=== PATIENT | male | born 1980 | race Caucasian/White ===

== ENCOUNTER → 2022-02-04 11:57 | Outpatient (CLI) | payer BC, SELFPAY ==
--- NOTE | ~2022-02-04 | XR_ITS ---
EXAMINATION: XR chest 2V DATE: 02/04/2022 12:21 INDICATION: Cough, unspecified. Chest pain. Shortness of breath. TECHNIQUE: Frontal and lateral views of the chest were obtained. COMPARISON: None. FINDINGS: The chest demonstrates clear lungs without pneumonia, pleural effusion, or pneumothorax. Th e heart size is normal. IMPRESSION: 1. No acute cardiopulmonary disease. Reviewed, dictated and finalized at location B.
== END ==
PROVIDERS: PCP Clinical Nurse Specialist; Visit Provider Clinical Nurse Specialist
DX: R05.9 Cough, unspecified (principal); R07.9 Chest pain, unspecified; R06.02 Shortness of breath
CPT/HCPCS: 71046

== ENCOUNTER 2022-03-10 11:03 | Outpatient (CLI) | payer BC, SELFPAY ==
[2022-03-10 11:34] LABS: Appearance Urine Clear (Clear); Bilirubin Urine Negative (Negative); Blood Urine Negative (Negative); Color Urine Yellow (Yellow); Glucose Urine UA Negative (Negative); Ketones Urine Negative (Negative); Leukocyte Esterase Ur Negative LEU/UL (Negative); Nitrate Urine Negative (Negative); Protein Urine Negative (Negative); Specific Grav Ur 1.025 (1.001-1.035); Urobilinogen Urine 0.2 mg/dL (<2.0)
[2022-03-10 11:42] LABS: Amorphous Sediment Urine Few; WBC Urine 0-3 /hpf
[2022-03-10 11:44] LABS: Add Urine Microscopic? YES
== END 2022-03-10 11:04 | disposition home or self-care (01) ==
PROVIDERS: PCP Clinical Nurse Specialist; Visit Provider Nurse Practitioner
DX: R10.30 Lower abdominal pain, unspecified (principal)
CPT/HCPCS: 81001

== ENCOUNTER 2022-03-10 17:03 | Emergency (ER) | payer BC, SELFPAY ==
--- NOTE | ~2022-03-10 | CT_ITS ---
EXAMINATION: CT abdomen pelvis w con DATE: 03/10/2022 17:57 INDICATION: Abdominal pain-lower abdominal and right groin pain, worse with urination and defecation TECHNIQUE: Computed tomography (CT) of the abdomen and pelvis was performed with 75 Omnipaque 300 int ravenous contrast. Automated exposure control and iterative reconstruction technique were employed. T he dose-length product was 256.08 mGy-cm. COMPARISON: None FINDINGS: Lower thorax: Unremarkable Liver: Normal. Biliary/Gallbladder: Gallbladder is partially collapsed. No bile duct dilation. Pancreas: No mass or duct dilation. Spleen: Normal. Adrenals:No mass. Kidneys: Nonobstructive right midpole calculi. No mass or hydronephrosis. GI tract: No small or large bowel dilation. Normal appendix. Mesentery/Peritoneum: No ascites, mass, or free air. Retroperitoneum: No mass. Pelvis: Mild prostate enlargement, with low-density change in the superior aspect. Bilateral enlarged , somewhat low density seminal vesicles, more pronounced on the right. Soft Tissues: Soft tissues and body wall unremarkable. Bones: No acute osseous finding. IMPRESSION: CT findings may reflect prostatitis and seminal vesiculitis in the appropriate clinical context. Othe rwise no acute abdominopelvic process. Reviewed, dictated and finalized at location K. IMPRESSION: CT findings may reflect prostatitis and seminal vesiculitis in the appropriate clinical context. Otherwise no acute abdominopelvic process.
[2022-03-10 17:04] VITALS: BP 131/89; PULSE 70; RESP 16; TEMP 35.9; O2SAT 100
--- NOTE | 2022-03-10 17:20 | ED.ABDPAIN ---
HPI - Abdominal Pain General Chief Complaint: Abdominal Pain Stated Complaint: hernia towards groin Time Seen by Provider: 03/10/22 17:20 Source: patient History of Present Illness HPI narrative: 41 years old white male complaining of intermittent right groin pain radiating to the right upper thigh and testicle for the last 3 weeks. The symptoms started 1 day after working on the deck with heavy lifting. He denies any fever, chills, nausea, vomiting, urinary symptoms, diarrhea or constipation. Patient was seen by his family physician who ordered some imaging for next week. Patient was driving going to [employer] today for work then got another spell of pain, Patient is healthy otherwise. Related Data Allergies Allergy/AdvReac Type Severity Reaction Status Date / Time poison estephania extract Allergy Mild SKIN Verified 06/28/19 14:04 ERUPTIONS/RASH Review of Systems Review of Systems: All systems reviewed & are unremarkable except as noted in HPI and below PMFSH Past Medical History Medical History Environmental allergies Surgical History Surgical History History of vasectomy Family History Family History Father Family history of elevated blood lipids Other Cerebrovascular accident Social History Social History Smoking status: Never smoker Alcohol intake: current Alcohol use details: rarely Exam Narrative: General appearance: Well-developed, well-nourished Skin: Normal color Head: Normocephalic, nontraumatic Eyes: Clear conjunctiva ENT: Oropharynx normal, ears normal, nose normal Neck: Supple, nontender Chest and respiratory: Airway patent, no respiratory distress, no accessory muscle use Heart: Regular rate/rhythm Abdomen: Soft, nontender, no organomegaly, quiet bowel sounds, right groin area showed no tenderness, no rash, no swelling, no mass, no hernia, no lymphadenopathy. Genital exam showed no abnormality. Including the penis and the scrotum and testicles Vascular: Normal peripheral pulses, normal capillary refill. Musculoskeletal: Normal range of motion, nontender back Neurologic: Alert and oriented ?3, CARTOGRAPHIC AIDE is normal as tested, no gross motor deficit Course Course Emergency Course: Work-up did not show any findings to explain patient condition. Right groin area extremely less likely to have anything to do with the possible prostatitis. My plan to send patient on Cipro 500 twice daily for 10 days and to follow-up with urologist for the possible prostatitis which could be coincidental finding. Abdominal wall muscular strain is my concern. Vital Signs Vital signs: Vital Signs Temperature 35.9 C L 03/10/22 17:04 Pulse Rate 70 03/10/22 17:04 Respiratory Rate 16 03/10/22 17:04 Blood Pressure 131/89 03/10/22 17:04 Pulse Oximetry 100 03/10/22 17:04 Oxygen Delivery Room Air 03/10/22 17:04 Temperature 35.9 C L 03/10/22 17:04 Pulse Rate 70 03/10/22 17:04 Respiratory Rate 16 03/10/22 17:04 Blood Pressure 131/89 03/10/22 17:04 Pulse Oximetry 100 03/10/22 17:04 Oxygen Delivery Room Air 03/10/22 17:04 MDM - Abdominal Pain Differential Diagnosis Differential diagnosis: Likely abdominal pain, acute appendicitis, calculus of kidney, constipation and diverticulitis Lab Data Result diagrams: 03/10/22 17:24 03/10/22 17:24 Labs: Lab Results 03/10/22 03/10/22 Range/Units 17:24 17:24 WBC 8.9 (4.5-10.0) K/mm3 RBC 4.65 (4.6-6.20) M/mm3
[2022-03-10 17:29] LABS: Basophils Absolute Auto 0.1 K/mm3 (0.0-0.1); Basophils Percent Auto 0.7 % (0.2-1.2); Eosinophils Absolute Auto 0.2 K/mm3 (0-0.3); Eosinophils Percent Auto 2.4 % (0-4.4); Hematocrit 41.8 % (42.0-52.0); Hemoglobin 14.3 g/dL (14.0-18.0); Immature Granulocyte Absolute 0.03 K/mm3 (0.00-0.031); Immature Granulocyte Percent A 0.3 % (0-0.5); Lymphocytes Absolute Auto 1.45 K/mm3 (0.9-3.2); Lymphocytes Percent Auto 16.4 % (18.3-44.2); Mean Corpuscular HGB Conc 34.2 g/dl (32-36); Mean Corpuscular Hemoglobin 30.8 pg (26-34); Mean Corpuscular Volume 89.9 fl (80-100); Mean Platelet Volume 11.6 fl (7.4-10.4); Monocytes Absolute Auto 0.5 K/mm3 (0.1-0.6); Monocytes Percent Auto 6.1 % (2.6-8.5); Neutrophils Absolute Auto 6.6 K/mm3 (1.3-6.7); Neutrophils Percent Auto 74.1 % (45.5-73.1); Platelet Count Result 157 k/mm3 (150-375); Red Blood Count 4.65 M/mm3 (4.6-6.20); White Blood Count 8.9 K/mm3 (4.5-10.0)
[2022-03-10] MEDS: SODIUM CHLORIDE 0.9% IV 1,000 ML 999 ML IV CONT (17:35)
[2022-03-10 17:37] LABS: Alanine Aminotransferase 31 U/L (6-50); Alkaline Phosphatase 84 U/L (38-126); Anion Gap 6 mmol/L (8-16); Aspartate Amino Transferase 36 U/L (17-59); Bilirubin,Total 0.5 mg/dL (0.2-1.3); Blood Urea Nitrogen 22 mg/dL (9-20); Calcium 8.8 mg/dL (8.4-10.2); Carbon Dioxide 28 mmol/L (22-30); Chloride 105 mmol/L (98-107); Estimated CRCL calculation 73 ml/min; Estimated Glomerular Filt Rate > 60; Glucose 105 mg/dL (65-110); Lipase 182 U/L (23-300); Potassium 4.3 mmol/L (3.4-5.0); Sodium 139 mmol/L (137-145)
== END 2022-03-10 18:42 | disposition home or self-care (01) ==
PROVIDERS: Emergency Provider Emergency Medicine; PCP Internal Medicine
DX: N41.0 Acute prostatitis (principal)
CPT/HCPCS: 36415; 74177; 80053; 83690; 85025; 96360; 99284; J7030; Q9967

== ENCOUNTER 2023-01-14 08:00 | Outpatient (NON) | payer BC, SELFPAY | END 2023-01-14 08:01 | disposition home or self-care (01) | LOC: ANHLAB 01-15 10:33 | PROVIDERS: PCP Internal Medicine; Visit Provider Nurse Practitioner | DX: D22.4 Melanocytic nevi of scalp and neck (principal) | CPT/HCPCS: 88305 ==

== ENCOUNTER 2023-01-21 14:48 | Outpatient (NON) | payer BC, SELFPAY | END 2023-01-21 14:49 | disposition home or self-care (01) | LOC: ANHLAB 14:49 | PROVIDERS: PCP Internal Medicine; Visit Provider Nurse Practitioner | DX: R22.9 Localized swelling, mass and lump, unspecified (principal) | CPT/HCPCS: 88304 ==

== ENCOUNTER → 2023-04-08 11:38 | Outpatient (CLI) | payer BC, SELFPAY ==
--- NOTE | ~2023-04-08 | US_ITS ---
US soft tissue groin RT 04/08/2023 12:08 Indication: Right lower quadrant pain. Evaluate for inguinal hernia. Procedure: High-resolution Limited ultrasound of the right groin Comparison: No prior studies for comparison. Findings: No evidence for right inguinal hernia. There are multiple lymph nodes of the right groin, l argest retaining normal fatty hilum measuring 2.3 cm, likely reactive. Impression: 1: No right inguinal hernia identified. 2: Right inguinal lymphadenopathy, likely reactive. Reviewed, dictated and finalized at location [] Impression: 1: No right inguinal hernia identified. 2: Right inguinal lymphadenopathy, likely reactive.
--- NOTE | ~2023-04-08 | US_ITS ---
Testicular ultrasound with doppler. Indication: Testicular pain. Technique: Real-time sonography the scrotum was performed. Color flow Doppler and Doppler spectral an alysis were performed. Findings: The testes are homogeneous in echotexture bilaterally. There is no evidence of an intrates ticular mass. The right testis measures 4.2 x 1.7 x 3.2 cm and the left 4.1 x 1.8 x 3.2 cm. There is color-flow seen to both testes. Arterial and venous spectral waveforms are seen in both testes. There is no sonographic evidence of torsion. The head of the epididymis is visualized bilaterally and is within normal limits. Minimal left hydrocele present. Impression: Minimal left hydrocele, otherwise unremarkable exam. Reviewed, dictated and finalized at location . Impression: Minimal left hydrocele, otherwise unremarkable exam.
== END ==
PROVIDERS: PCP Internal Medicine; Visit Provider Nurse Practitioner
DX: N50.819 Testicular pain, unspecified (principal); R10.31 Right lower quadrant pain
CPT/HCPCS: 76870; 76882; 93976

== ENCOUNTER 2023-08-09 12:29 | Outpatient (CLI) | payer BC, SELFPAY ==
[2023-08-09 19:05] LABS: Basophils Percent Auto 0.5 % (0.2-1.2); Eosinophils Absolute Auto 0.1 K/mm3 (0-0.3); Hematocrit 44.2 % (42.0-52.0); Hemoglobin 14.6 g/dL (14.0-18.0); Immature Granulocyte Absolute 0.01 K/mm3 (0.00-0.031); Immature Granulocyte Percent A 0.1 % (0-0.5); Lymphocytes Absolute Auto 1.47 K/mm3 (0.9-3.2); Lymphocytes Percent Auto 19.2 % (18.3-44.2); Mean Corpuscular Hemoglobin 29.9 pg (26-34); Mean Corpuscular Volume 90.6 fl (80-100); Mean Platelet Volume 12.4 fl (7.4-10.4); Monocytes Absolute Auto 0.5 K/mm3 (0.1-0.6); Monocytes Percent Auto 6.9 % (2.6-8.5); Neutrophils Absolute Auto 5.5 K/mm3 (1.3-6.7); Neutrophils Percent Auto 72.3 % (45.5-73.1); Platelet Count Result 160 k/mm3 (150-375); Red Blood Count 4.88 M/mm3 (4.6-6.20); Red Cell Distribution Width 11.9 % (11.5-14.5); White Blood Count 7.7 K/mm3 (4.5-10.0)
[2023-08-09 19:31] LABS: Appearance Urine Clear (Clear); Bilirubin Urine Negative (Negative); Blood Urine Negative (Negative); Color Urine Yellow (Yellow); Glucose Urine UA Negative (Negative); Ketones Urine Negative (Negative); Leukocyte Esterase Ur Negative LEU/UL (Negative); Nitrate Urine Negative (Negative); Protein Urine Negative (Negative); Specific Grav Ur 1.008 (1.001-1.035); Urobilinogen Urine 0.2 mg/dL (<2.0); pH Urine 7.5 (5.0-9.0)
[2023-08-09 19:44] LABS: Add Urine Microscopic? NO
[2023-08-09 20:06] LABS: Alanine Aminotransferase 26 U/L (6-50); Albumin Level 4.3 g/dL (3.5-5.1); Alkaline Phosphatase 82 U/L (38-126); Amylase 98 U/L (30-110); Anion Gap 6 mmol/L (8-16); Aspartate Amino Transferase 35 U/L (17-59); Bilirubin,Total 0.5 mg/dL (0.2-1.3); Blood Urea Nitrogen 18 mg/dL (9-20); Calcium 8.9 mg/dL (8.4-10.2); Carbon Dioxide 29 mmol/L (22-30); Chloride 103 mmol/L (98-107); Estimated Glomerular Filt Rate > 60; Glucose 96 mg/dL (65-110); Lipase 208 U/L (23-300); Potassium 3.8 mmol/L (3.4-5.0); Sodium 138 mmol/L (137-145)
[2023-08-09 20:30] LABS: Thyroid Stimulating Hormone 0.779 uIU/mL (0.465-4.680)
== END 2023-08-09 12:30 | disposition home or self-care (01) ==
PROVIDERS: PCP Internal Medicine; Visit Provider Clinical Nurse Specialist
DX: R10.9 Unspecified abdominal pain (principal)
CPT/HCPCS: 36415; 80053; 81003; 82150; 83690; 84443; 85025

== ENCOUNTER 2023-09-14 03:05 | Day surgery (SDC) | payer BC, SELFPAY ==
[2023-08-26 13:15] VITALS: BMI 24.2
--- NOTE | 2023-09-13 09:50 | SUR.PREOP ---
Patient called regarding upcoming procedure. Message left on patient's voicemail regarding preop instructions, appointment times, and procedure prep.
[2023-09-14 07:19] VITALS: BP 107/82; PULSE 84; RESP 16; TEMP 36.3; O2SAT 100; BMI 22.8
[2023-09-14] MEDS: LACTATED RINGERS 1,000 ML 150 ML IV CONT (07:38)
--- NOTE | 2023-09-14 08:03 | WPDANESEPPF ---
Anes - Initial Pre Proc Eval Procedure: Operation Date: 09/14/23 08:30 Proposed Procedures p Esophagogastroduodenoscopy & Screening Colonoscopy - Alok Mitchell MD Date/Time: 09/14/23 08:03 Surgeon: Alok Mitchell MD Pre Op Diagnosis: neoplasm screening,abdom pain,GERD,Adom.distension Patient Data Age: 43 Gender: M Height: 1.65 m Weight: 62.2 kg Last Vital Signs Temp 97.4 F L 09/14/23 07:19 Pulse 84 09/14/23 07:19 Resp 16 09/14/23 07:19 BP 107/82 09/14/23 07:19 Pulse Ox 100 09/14/23 07:19 O2 Del Method Room Air 09/14/23 07:19 Allergies Allergy/AdvReac Type Severity Reaction Status Date / Time poison estephania extract Allergy Mild SKIN Verified 09/14/23 07:18 ERUPTIONS/RASH Home Medications Medication Instructions Recorded Confirmed Type No Home Medications 11/19/22 09/14/23 History Patient hx anesthesia problems: none Family hx anesthesia problems: none Results Review: All pre-operative results and documents have been reviewed as part of the pre-operative evaluation. [facility] Past Medical History Medical History (Updated 08/18/23 @ 10:47 by JEAN Robins) Anxiety BMI 23.0-23.9, adult Environmental allergies GERD (gastroesophageal reflux disease) Surgical History Surgical History History of vasectomy Family History Family History Father Family history of elevated blood lipids Mother No problems noted. Sibling No problems noted. Other Cerebrovascular accident Social History Social History (Updated 08/18/23 @ 10:48 by JEAN Robins) Smoking status: Never smoker Second hand tobacco smoke exposure: No Alcohol intake: current Alcohol use details: 1 drink per month Substance use: current Substance use type: marijuana Other substance usage details: rare occasional edible gummies Last use: gummies Lack of Transportation: No Lack of Food: Never True Current Housing: I Have Housing Concerned About Future Housing: No Difficulty Paying Gas/Electric Bills: No Difficulty Paying for Meds: No Currently Unemployed: No Education: Bachelor's Degree Difficulty w/ Childcare or Family Care: No Living arrangements: with family Occupation/Education: occupation 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 Informed Consent: The patient's anesthetic plan and its attendant risks and benefits were discussed with the patient/family/POA. Questions were solicited and answers provided to the satisfaction of the patient/family/POA.
--- NOTE | 2023-09-14 08:31 | WPDHPUPDATE1 ---
History and Physical Update Update Date/Time: 09/14/23 08:31 History and Physical has been reviewed, including an updated exam of the patient. There are NO changes in the patient's condition. Risks, benefits, and alternatives have been discussed and questions answered. Patient agrees to proceed with procedure.
[2023-09-14] MEDS: BENZOCAINE (*SP) 60 ML SPRAY CAN (HURRICAINE) 1 SPRAY MUCOUS MEM (08:39)
--- NOTE | 2023-09-14 08:45 | SUR.OPER ---
EGD START: 836; END: 983. COLONOSCOPY START: 845; END: 853.
[2023-09-14 08:57] VITALS: BP 99/65; PULSE 73; RESP 15; O2SAT 97
[2023-09-14 09:07] VITALS: BP 123/76; PULSE 71; RESP 21; O2SAT 100
[2023-09-14 09:17] VITALS: BP 117/76; PULSE 68; RESP 15; O2SAT 100
== END 2023-09-14 09:26 | disposition home or self-care (01) ==
PROVIDERS: PCP Internal Medicine; Visit Provider Internal Medicine Gastroenterology
PROC: 0DJ08ZZ Inspection of Upper Intestinal Tract, Via Natural or Artificial Opening Endoscopic (ICD-10-PCS; CPT 43235; principal; 2023-09-14 08:30)
DX: Z12.11 Encounter for screening for malignant neoplasm of colon (principal); D12.5 Benign neoplasm of sigmoid colon; K30 Functional dyspepsia; R14.3 Flatulence
CPT/HCPCS: 43239; 45385; 88305; J2704; J7120

== ENCOUNTER 2024-01-06 14:51 | Outpatient (CLI) | payer BC, SELFPAY ==
--- NOTE | ~2024-01-06 | US_ITS ---
Testicular ultrasound with doppler, and bilateral groin ultrasound. Indication: Pain. Technique: Real-time sonography the scrotum was performed. Color flow Doppler and Doppler spectral an alysis were performed. Findings: The testes are homogeneous in echotexture bilaterally. There is no evidence of an intrates ticular mass. The right testis measures 3.5 x 2.5 x 2.0 cm and the left 3.7 x 2.1 x 2.1 cm. There is color-flow seen to both testes. Arterial and venous spectral waveforms are seen in both testes. There is no sonographic evidence of torsion. The head of the epididymis is visualized bilaterally and is within normal limits. Morphologically normal lymph nodes with prominent fatty mich and thin peripheral cortices are present in the bilateral groin/inguinal regions. No pathologic lymphadenopathy or mass evident. Impression: Unremarkable exam. No evidence of torsion or testicular mass. Morphologically normal lymph nodes in the bilateral groin/renal regions. Reviewed, dictated and finalized at [facility]. Impression: Unremarkable exam. No evidence of torsion or testicular mass. Morphologically normal lymph nodes in the bilateral groin/renal regions. Impression: Unremarkable exam. No evidence of torsion or testicular mass. Morphologically normal lymph nodes in the bilateral groin/renal regions. Impression: Unremarkable exam. No evidence of torsion or testicular mass. Morphologically normal lymph nodes in the bilateral groin/renal regions.
== END 2024-01-06 14:52 ==
LOC: GOSHIMG 14:52
PROVIDERS: PCP Internal Medicine; Visit Provider Clinical Nurse Specialist
DX: R10.32 Left lower quadrant pain (principal); R10.31 Right lower quadrant pain; N50.819 Testicular pain, unspecified
CPT/HCPCS: 76870; 76882; 93976

== ENCOUNTER 2024-06-16 12:15 | Outpatient (CLI) | payer BC, SELFPAY | END 2024-06-16 12:16 | LOC: GOSHIMG 12:16 | PROVIDERS: PCP Internal Medicine; Visit Provider Nurse Practitioner | DX: M25.562 Pain in left knee (principal) | CPT/HCPCS: 73564 ==

== ENCOUNTER 2025-06-05 15:07 | Emergency (ER) | payer BC, SELFPAY ==
--- NOTE | ~2025-06-05 | XR_ITS ---
CHEST RADIOGRAPH, PA AND LATERAL CLINICAL HISTORY: chest pain . COMPARISON: 02/04/2022 TECHNIQUE: PA and lateral views of the chest. FINDINGS The cardiomediastinal silhouette is unremarkable. The lungs are clear. IMPRESSION: No focal infiltrate or effusion. Reviewed, dictated and finalized at location A.
--- NOTE | 2025-06-05 15:08 | ECG_ITS ---
Test Date: 2025-06-05 15:15:54 Measurements Intervals [place] Rate: 89 P: 53 ID: [id number] QRS: 38 QRSD: 94 T: 39 QT: 337 QTc: 411 Interpretive Statements SINUS RHYTHM POSSIBLE LEFT ATRIAL ENLARGEMENT DELAYED PRECORDIAL R/S TRANSITION BASELINE ARTIFACT- I, II, III, AVR, AVL BORDERLINE ECG No previous ECG available for comparison Electronically Signed On 06-05-2025 16:58:05 CDT by Krishna Deleon D.O.
[2025-06-05 15:15] VITALS: BP 135/80; PULSE 90; RESP 16; TEMP 37.1; O2SAT 100
[2025-06-05 15:18] VITALS: PULSE 90; O2SAT 100
--- NOTE | 2025-06-05 15:30 | ED_ITS ---
HPI - Chest Pain General Chief Complaint: Chest Pain Stated Complaint: chest pain x 30 mins, fatigued all day Time Seen by Provider: 06/05/25 15:18 History of Present Illness HPI narrative: This is a 44-year-old male no significant past medical history presents to ED for chest pain. Patient states he was sitting at home on his computer at work when he had onset chest. States that it feels that he can not get a deep breath cassette feels like his weight is catching. Denies fevers, chills, nausea, vomiting, diarrhea, constipation, runny nose, stuffy nose. No cardiac history. He is a nonsmoker. No family history of sudden cardiac . Related Data Allergies Allergy/AdvReac Type Severity Reaction Status Date / Time poison estephania extract Allergy Mild SKIN Verified 06/05/25 15:27 ERUPTIONS/RASH Review of Systems 2 Review of Systems: Gen.: Denies fevers or chills Eyes: Denies eye pain or visual change ENT: Denies congestion Respiratory: Denies shortness of breath or cough CV: Denies chest pain or palpitations GI: Denies abdominal pain nausea, emesis or diarrhea denies burning, urgency, frequency or hematuria Musculoskeletal: Denies back pain or muscle pain Neuro: Denies numbness, tingling, weakness or focal weakness Skin: Denies rash Except as documented, all other systems reviewed and negative [facility] Past Medical History Medical History Anxiety BMI 23.0-23.9, adult Environmental allergies GERD (gastroesophageal reflux disease) Surgical History Surgical History History of vasectomy Family History Family History Father Family history of elevated blood lipids Mother No problems noted. Sibling No problems noted. Other Cerebrovascular accident Social History Social History Smoking status: Never smoker Second hand tobacco smoke exposure: No Alcohol intake: current Alcohol use details: 1 drink per month Substance use: current Substance use type: marijuana Other substance usage details: rare occasional edible gummies Last use: gummies Lack of Transportation: No Lack of Food: Never True Current Housing: I Have Housing Concerned About Future Housing: No Difficulty Paying Gas/Electric Bills: No Difficulty Paying for Meds: No Currently Unemployed: No Education: Bachelor's Degree Difficulty w/ Childcare or Family Care: No Living arrangements: with family Occupation/Education: occupation 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 CARDIOVASCULAR: Regular rate and rhythm without murmurs rubs or gallops. ABDOMINAL: Soft, nontender, nondistended, no rebound or guarding MUSCULOSKELETAl: Moves all extremities. No clubbing, cyanosis or edema. NEURO: Awake and alert. Following commands, speech normal, no focal deficits SKIN:: Warm, dry. No rashes lesions or abrasions PSYCHIATRIC: Normal affect/mood, Course Vital Signs Vital signs: Vital Signs Temperature 98.7 F 06/05/25 15:15 Pulse Rate 90 06/05/25 15:15 Respiratory Rate 16 06/05/25 15:15 Blood Pressure 135/80 06/05/25 15:15 Pulse Oximetry 100 06/05/25 15:15 Oxygen Delivery Room Air 06/05/25 15:15 Temperature 98.7 F 06/05/25 15:15 Pulse Rate 80 06/05/25 18:50 Respiratory Rate 15 06/05/25 18:50 Blood Pressure 122/77 06/05/25 18:50 Pulse Oximetry 98 06/05/25 18:50 Oxygen Delivery Room Air 06/05/25 15:18 MDM - Chest Pain MDM Narrative Medical decision making narrative: 44-year-old male who presents to the ED for left-sided chest pain. On initial evaluation, patient is in no acute distress, afebrile, hemodynamically stable. Initial EKG showed no concerning findings. Initial troponin negative. Chest x- ray showed acute process. Repeat troponin negative. Patient did have some mild improvement of his pain with Toradol and Lidoderm. The patient did have a slight leukocytosis at 13, however, there is no obvious infection at this time and he is nontoxic. Suspect patient may have costochondritis. Heart score 1. He was given a referral to Cardiology for further evaluation. Patient was agreeable this plan. Given strict return precautions. Differential Diagnosis Differential diagnosis: Likely atypical chest pain, costochondritis and chest pain Lab Data Attestation: I reviewed the patient's lab results. 06/05/25 15:26 06/05/25 15:26 Labs: Lab Results 06/05/25 06/05/25 Range/Units 15:26 17:52 WBC 13.5 H (4.5-10.0) K/mm3 RBC 4.70 (4.6-6.20) M/mm3 Hgb 14.2 (14.0-18.0) g/dL Hct 41.9 L (42.0-52.0) % MCV 89.1 (80-100) fl MCH 30.2 (26-34) pg MCHC 33.9 (32-36) g/dl RDW 11.8 (11.5-14.5) % Plt Count 151 (150-375) k/mm3 MPV 11.1 H (7.4-10.4) fl Immature Gran % (Auto) 0.2 (0-0.5) % Neut % (Auto) 84.7 H (45.5-73.1) % Lymph % (Auto) 6.9 L (18.3-44.2) % [place] % (Auto) 7.4 (2.6-8.5) % Eos % (Auto) 0.5 (0-4.4) % Baso % (Auto) 0.3 (0.2-1.2) % Lymph # (Auto) 0.94 (0.9-3.2) K/mm3 [place] # (Auto) 1.0 H (0.1-0.6) K/mm3 Eos # (Auto) 0.1 (0-0.3) K/mm3 Baso # (Auto) 0.0 (0.0-0.1) K/mm3 Abs Immat Gran (auto) 0.03 (0.00-0.031) K/mm3 Absolute Neuts (auto) 11.5 H (1.3-6.7) K/mm3 Absolute Nucleated RBC 0.000 (0.0-0.012) K/mm3 Nucleated RBC % 0.0 (0.0-0.2) % PT 13.8 (11.1-14.7) Seconds INR 1.0 APTT 29.8 (22.3-36.8) Seconds Sodium 137 (137-145) mmol/L Potassium 4.2 (3.4-5.0) mmol/L Chloride 102 (98-107) mmol/L Carbon Dioxide 28 (22-30) mmol/L Anion Gap 7 (4-12) mmol/L BUN 15 (9-20) mg/dL Creatinine 0.93 (0.7-1.3) mg/dL Estim Creat Clear Calc 76 ml/min Estimated GFR > 60 (59 - ) Glucose 128 H (65-110) mg/dL Calcium 9.0 (8.4-10.2) mg/dL Total Bilirubin 0.6 (0.2-1.3) mg/dL AST 30 (17-59) U/L ALT 29 (6-50) U/L Alkaline Phosphatase 86 (38-126) U/L Troponin I < 0.012 < 0.012 (0.000-0.034) ng/mL Total Protein 7.7 (6.3-8.2) g/dL Albumin 4.5 (3.5-5.1) g/dL Lipase 136 (23-300) U/L Imaging Data Radiologist's impression: Impressions Chest X-Ray 06/05/25 15:35 IMPRESSION: No focal infiltrate or effusion. ECG Data EKG #1: ECG completion date: 06/05/25 ECG completion time: 15:15 Interpretation: Normal sinus rhythm rate of 89, normal axis, normal intervals, left atrial enlargement, no acute ST or T-wave changes Discharge Plan Discharge Clinical Impression: Chest pain Qualifiers: Chest pain type: intercostal pain Qualified Code(s): R07.82 - Intercostal pain Patient Disposition: Home Condition: Stable Instructions: Antibiotic Form, Chest Pain (ED) Additional Instructions: He recently ED today for chest pain. Labs, EKG, chest x-ray were all obtained and showed no evidence of cardiac injury at this time. You likely have costochondritis. He may take Tylenol and ibuprofen for the pain. You were given a referral to Dr. Woody, cardiology, to follow up with him next week for further evaluation. Return to the ED for any new or worsening symptoms. Patient Language: Israeli Follow-up/Referrals: Mara Woody DO [Physician, Cardiology] Giuseppe Lima DO [Primary Care Provider, Internal Medicine]
[2025-06-05 15:33] LABS: Hematocrit 41.9 % (42.0-52.0); Hemoglobin 14.2 g/dL (14.0-18.0); Immature Granulocyte Percent A 0.2 % (0-0.5); Lymphocytes Absolute Auto 0.94 K/mm3 (0.9-3.2); Mean Corpuscular HGB Conc 33.9 g/dl (32-36); Mean Corpuscular Hemoglobin 30.2 pg (26-34); Mean Corpuscular Volume 89.1 fl (80-100); Nucleated Red Blood Cells Absolute Auto 0.000 K/mm3 (0.0-0.012); Nucleated Red Blood Cells Perc 0.0 % (0.0-0.2); Platelet Count Result 151 k/mm3 (150-375); Red Blood Count 4.70 M/mm3 (4.6-6.20); White Blood Count 13.5 K/mm3 (4.5-10.0)
--- OUTSIDE RECORDS SUMMARY | 2025-06-05 15:35 | XMS_ITS | Clinical Summary ---
Author Organization [facility] Address [address] [place] [address] Care Team Providers Care Catalogue Librarian Name Role Phone Giuseppe Lima DO Primary Care Provider Source Comments [facility],non-owned Affiliates and Associated Physician Practices is amultiple site organization consisting of ambulatory clinics and hospital sitesin [place], [place]. This disclosure is being madepursuant to the Care Everywhere program and may not contain all information available regarding this patient. Last updated 18.[facility] Allergies No known active allergies Medications * Be aware that medications may not be up to date on this document. Alwaysverify current medications with the patient. Omeprazole (PRILOSEC PO) Active Social History Tobacco Use Types Packs/Day Years Used Date Smoking Tobacco: Never Sex and Gender Information Value Date Recorded Sex Assigned at Not on file Legal Sex Male 12:50 PM CDT Gender Identity Not on file Sexual Orientation Not on file Last Filed Vital Signs Vital Sign Reading Time Taken Comments Blood Pressure 118/72 01/29/2017 6:25 PM CDT Pulse 65 01/29/2017 6:25 PM CDT Temperature 36.8 C (98.2 F) 01/29/2017 6:25 PM CDT Respiratory Rate 16 01/29/2017 6:25 PM CDT Oxygen Saturation 98% 01/29/2017 6:25 PM CDT Inhaled Oxygen Concentration - - Weight 63.5 kg (140 lb) 02/26/2021 9:04 AM CDT Height 165.1 cm (5' 5) 02/26/2021 9:04 AM CDT Body Mass Index 23.3 02/26/2021 9:04 AM CDT Plan of Treatment Health Maintenance Due Date Last Done Comments COLOGUARD (AGES 45-75) - COL ON CA SCREENING 1978 COLON MONITORING 1978 COLONOSCOPY - COLON CA SCREENING 1978 CT COLONOGRAPHY - COLON CA SCREENING 1978 Colorectal Cancer Screening 1978 FIT - COLON CA SCREENING 1978 FLEX SIG - COLON CA SCREENING 1978 LIPID TESTING 1978 HIV SCREENING 1993 HEPATITIS C SCREENING 06/06/1996 DTAP/TDAP/TD VACCINES (1 - Tdap) 1997 HEPATITIS B VACCINE (1 of 3 - 19+ 3-dose series) 1997 COVID-19 VACCINE (1 - 2023-2 5 season) 2024 DEPRESSION SCREENING 10/18/2024 INFLUENZA VACCINE (#1) 2025 ZOSTER VACCINE (1 of 2) 2028 HIB VACCINE Aged Out No longer eligi ble based on patient's age to complete this topic HPV VACCINE Aged Out No longer eligi ble based on patient's age to complete this topic MENINGOCOCCAL (Group B) VACC INE SHARED DECISION-MAKING Aged Out No longer eligibl e based on patient's age to complete this topic MENINGOCOCCAL GROUPS A/C/Y/W VACCINE Aged Out No longer eligible b ased on patient's age to complete this topic PNEUMOCOCCAL VACCINE Aged Out No long er eligible based on patient's age to complete this topic Insurance [facility] SELF PAY NO INSURANCE Member Subscriber Plan / Payer (Ef fective for All Dates) Name:Charmaine Ruggiero Member ID:Not on file Relation to Subscriber:Not on file Name:CHARMAINE RUGGIERO Subscriber ID:Not on file Address: [address] [place] [address] Payer ID:Not on file Group ID:Not on file Type:Self Pay Address: [place], [place] Care Teams Catalogue Librarian Relationship Specialty Start Date End Date Giuseppe Lima DO PCP - General Internal Medicine 01/29/17
--- OUTSIDE RECORDS SUMMARY | 2025-06-05 15:35 | XMS_ITS | Clinical Summary ---
Author Organization [facility] Address [address] [place] [address] Care Team Providers Care Bus Aide Name Role Phone Giuseppe Lima DO Primary Care Provider [phone]- [phone] Bijal Lott OD Unavailable Allergies No known active allergies Medications naproxen (NAPROSYN) 500 mg tablet 1 Active omeprazole (PriLOSEC) 20 mg capsule daily Active prednisoLONE acetate (PRED FORTE) 1 % ophthalmic suspension 1 Active albuterol HFA (PROVENTIL HFA,VENTOLIN HFA,PROAIR HFA) 90 mcg/actuation inhaler INHALE 1 PUFF EVERY 4 HOURS NEEDED FOR SHORTNESS OF BREATH/WHEEZIN G 2 Active methylPREDNISolo ne (MEDROL DOSEPACK) 4 mg Dosepack TAKE 6 TABLETS ON DAY 1 DIRECTED ON PACKAGE AND DECREASE BY 1 TAB EACH DAY FOR A TOTAL OF 6 DAYS 2 Active ciprofloxacin (CIPRO) 500 mg tablet Take 500 mg by mouth every 12 (twelve) hours 2 Active doxycycline (ADOXA) 100 mg tablet TAKE 1 TABLET BY MOUTH TWICE A DAY FOR 14 DAYS, THEN DAILY FOR 30 DAYS 2 Active doxycycline monohydrate (Monodox) 50 mg capsule Take 1 capsule (50 mg total) by mouth daily 30 capsule 5 2 Active doxycycline monohydrate (Monodox) 50 mg capsule Take 1 capsule (50 mg total) by mouth daily 30 capsule 3 2 Active Active Problems Problem Noted Date Diagnosed Date 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/2017 Surgical History Surgery Date Site/Laterality Comments VASECTOMY Medical History Medical History Date Comments Peptic ulceration Anxiety Social History Tobacco Use Types Packs/Day Years Used Date Smoking Tobacco: Never Personal Safety Answer Date Recorded Getting School Help Needed Not on file 01/01 Sex and Gender Information Value Date Recorded Sex Assigned at Not on file Legal Sex Male 3:47 PM CDT Gender Identity Not on file Sexual Orientation Not on file Obstetrics History Last Filed Vital Signs Vital Sign Reading Time Taken Comments Blood Pressure 131/74 08/26/2021 8:28 AM LINING CLEANER Pulse 71 08/26/2021 8:28 AM LINING CLEANER Temperature - - Respiratory Rate - - Oxygen Saturation - - Inhaled Oxygen Concentration - - Weight 67 kg (147 lb 9.6 oz) 08/26/2021 8:28 AM LINING CLEANER Height 165.1 cm (5' 5) 08/26/2021 8:28 AM LINING CLEANER Body Mass Index 24.56 08/26/2021 8:28 AM LINING CLEANER Plan of Treatment Not on file Insurance Diligent Board Member Services [place] Diligent Board Member Services [place] Care Teams Bus Aide Relationship Specialty Start Date End Date Giuseppe Lima DO PCP - General 02/12/17 Bijal Lott OD [address] [place] [address] Referring Physician Optometry 08/26/22
[2025-06-05] MEDS: KETOROLAC 30 MG/ML VIAL (*BKC) IV PUSH (15:37)
[2025-06-05] MEDS: LIDOCAINE 5% PATCH 1 PATCH TRANSDERM (15:38)
[2025-06-05 15:39] VITALS: BP 125/79; PULSE 85; RESP 19; O2SAT 99
[2025-06-05 15:46] LABS: INR 1.0; Prothrombin Time 13.8 Seconds (11.1-14.7)
[2025-06-05 15:47] LABS: Partial Thromboplastin Time 29.8 Seconds (22.3-36.8)
[2025-06-05 16:33] LABS: Alanine Aminotransferase 29 U/L (6-50); Albumin Level 4.5 g/dL (3.5-5.1); Alkaline Phosphatase 86 U/L (38-126); Anion Gap 7 mmol/L (4-12); Aspartate Amino Transferase 30 U/L (17-59); Bilirubin,Total 0.6 mg/dL (0.2-1.3); Blood Urea Nitrogen 15 mg/dL (9-20); Calcium 9.0 mg/dL (8.4-10.2); Carbon Dioxide 28 mmol/L (22-30); Chloride 102 mmol/L (98-107); Estimated CRCL calculation 76 ml/min; Estimated Glomerular Filt Rate > 60; Glucose 128 mg/dL (65-110); Lipase 136 U/L (23-300); Potassium 4.2 mmol/L (3.4-5.0); Sodium 137 mmol/L (137-145); Total Protein 7.7 g/dL (6.3-8.2)
[2025-06-05 16:44] LABS: Troponin I < 0.012 ng/mL (0.000-0.034)
--- NOTE | 2025-06-05 17:30 | ECG_ITS ---
Test Date: 2025-06-05 17:44:31 Measurements Intervals [place] Rate: 78 P: 58 NM: 149 QRS: 55 QRSD: 114 T: 51 QT: 359 QTc: 411 Interpretive Statements SINUS RHYTHM POSSIBLE LEFT ATRIAL ENLARGEMENT INCOMPLETE RIGHT BUNDLE BRANCH BLOCK DELAYED PRECORDIAL R/S TRANSITION BORDERLINE ECG Compared to ECG 06/05/2025 15:15:54 NO SIGNIFICANT CHANGE Electronically Signed On 06-05-2025 19:05:16 CDT by Krishna Deleon D.O.
[2025-06-05 17:45] VITALS: BP 115/78; PULSE 80; RESP 14; O2SAT 98
[2025-06-05 18:27] LABS: Troponin I < 0.012 ng/mL (0.000-0.034)
[2025-06-05 18:50] VITALS: BP 122/77; PULSE 80; RESP 15; O2SAT 98
== END 2025-06-05 18:51 | disposition home or self-care (01) ==
PROVIDERS: Emergency Medicine; Emergency Provider Student in an Organized Health Care Education/Training Program; PCP Internal Medicine
DX: R07.82 Intercostal pain (principal); K21.9 Gastro-esophageal reflux disease without esophagitis; F41.9 Anxiety disorder, unspecified; I45.10 Unspecified right bundle-branch block; R94.31 Abnormal electrocardiogram [ECG] [EKG]
CPT/HCPCS: 36415; 71046; 80053; 83690; 84484; 85025; 85610; 85730; 93005; 96374; 99284; A9270; J1885

== ENCOUNTER 2025-06-07 13:45 | Outpatient (CLI) | payer BC, SELFPAY ==
--- OUTSIDE RECORDS SUMMARY | 2025-06-07 13:57 | XMS_ITS | Clinical Summary ---
Author Organization [facility] [employer] Address [address] [place] [address] Care Team Providers Care Diversified Crops I Farmworker Name Role Phone Giuseppe Lima DO Primary Care Provider Source Comments [facility] [employer],non-owned Affiliates and Associated Physician Practices is amultiple site organization consisting of ambulatory clinics and hospital sitesin [place], [place], [place] and [place]. This disclosure is being madepursuant to the Care Everywhere program and may not contain all information available regarding this patient. Last updated 18.[facility] [employer] Allergies No known active allergies Medications * [...] age to complete this topic Insurance [facility] [facility] SELF PAY NO INSURANCE Member Subscriber Plan / Payer (Ef fective for All Dates) Name:Charmaine Ruggiero Member ID:Not on file Relation to Subscriber:Not on file Name:CHARMAINE RUGGIERO Subscriber ID:Not on file Address: [address] [place] [address] Payer ID:Not on file Group ID:Not on file Type:Self Pay Address: [place], [place] Care Teams Diversified Crops I Farmworker Relationship Specialty Start Date End Date Giuseppe Lima DO PCP - General Internal Medicine 01/29/17
--- OUTSIDE RECORDS SUMMARY | 2025-06-07 13:57 | XMS_ITS | Clinical Summary ---
Author Organization [facility] Address [address] [place] [address] Care Team Providers Care Roof Foreman Name Role Phone Giuseppe Lima DO Primary Care Provider [phone]- [phone] Bijal Lott OD Unavailable Allergies No known [...] Comments Blood Pressure 131/74 08/26/2021 8:28 AM LINSEED OIL ORDER FILLER Pulse 71 08/26/2021 8:28 AM LINSEED OIL ORDER FILLER Temperature - - Respiratory Rate - - Oxygen Saturation - - Inhaled Oxygen Concentration - - Weight 67 kg (147 lb 9.6 oz) 08/26/2021 8:28 AM LINSEED OIL ORDER FILLER Height 165.1 cm (5' 5) 08/26/2021 8:28 AM LINSEED OIL ORDER FILLER Body Mass Index 24.56 08/26/2021 8:28 AM LINSEED OIL ORDER FILLER Plan of Treatment Not on file Insurance [place] [place] [place] Care Teams Roof Foreman Relationship Specialty Start Date End Date Giuseppe Lima DO PCP - General 02/12/17 Bijal Lott OD [address] [place] [address] Referring Physician Optometry 08/26/22
[2025-06-07 16:22] LABS: Hematocrit 45.4 % (42.0-52.0); Hemoglobin 15.1 g/dL (14.0-18.0); Immature Granulocyte Percent A 0.3 % (0-0.5); Lymphocytes Absolute Auto 0.74 K/mm3 (0.9-3.2); Mean Corpuscular HGB Conc 33.3 g/dl (32-36); Mean Corpuscular Hemoglobin 30.3 pg (26-34); Mean Corpuscular Volume 91.2 fl (80-100); Nucleated Red Blood Cells Absolute Auto 0.000 K/mm3 (0.0-0.012); Nucleated Red Blood Cells Perc 0.0 % (0.0-0.2); Platelet Count Result 140 k/mm3 (150-375); Red Blood Count 4.98 M/mm3 (4.6-6.20); White Blood Count 9.6 K/mm3 (4.5-10.0)
[2025-06-07 16:37] LABS: Add Urine Microscopic? YES; Appearance Urine Cloudy (Clear); Glucose Urine UA Negative (Negative); Leukocyte Esterase Ur Negative LEU/UL (Negative); Need Manual Microscopic Reviewed; Nitrate Urine Negative (Negative); Non Pathogenic Casts 0-2; Specific Grav Ur 1.007 (1.001-1.035)
[2025-06-07 16:43] LABS: Alanine Aminotransferase 94 U/L (6-50); Albumin Level 4.2 g/dL (3.5-5.1); Alkaline Phosphatase 101 U/L (38-126); Anion Gap 7 mmol/L (4-12); Aspartate Amino Transferase 84 U/L (17-59); Bilirubin,Total 0.7 mg/dL (0.2-1.3); Blood Urea Nitrogen 12 mg/dL (9-20); CRP 4.4 mg/dL (<1.0); Calcium 9.1 mg/dL (8.4-10.2); Carbon Dioxide 30 mmol/L (22-30); Chloride 100 mmol/L (98-107); Creatine Kinase 56 U/L (55-170); Estimated Glomerular Filt Rate > 60; Glucose 110 mg/dL (65-110); Potassium 3.9 mmol/L (3.4-5.0); Sodium 137 mmol/L (137-145); Total Protein 7.7 g/dL (6.3-8.2)
[2025-06-07 17:16] LABS: Thyroid Stimulating Hormone 0.833 uIU/mL (0.465-4.680)
[2025-06-12 11:08] LABS: ANA by IFA Rfx Titer/Pattern Negative (.)
== END 2025-06-07 13:46 | disposition home or self-care (01) ==
LOC: ANHGOSHLAB 13:46
PROVIDERS: PCP Internal Medicine; Visit Provider Clinical Nurse Specialist
DX: D72.829 Elevated white blood cell count, unspecified (principal); M79.10 Myalgia, unspecified site; R06.02 Shortness of breath
CPT/HCPCS: 36415; 80053; 81001; 82550; 84443; 85025; 85652; 86038; 86140; 86160; 86430

== ENCOUNTER 2025-06-08 09:38 | Outpatient (CLI) | payer BC, SELFPAY ==
--- NOTE | ~2025-06-08 | CT_ITS ---
EXAMINATION: CT diagnostic chest w con DATE: 06/08/2025 10:15 CDT INDICATION: Chest pain TECHNIQUE: Computed tomographic angiography (CTA) of the chest was performed with 100 mL Omnipaque-350 intravenous contrast. The dose-length product was 148.84 mGy-cm. Maximum intensity projection 3D-reconstructions of the aorta and other arteries were constructed by the technologist on a separate workstation. COMPARISON: None. FINDINGS/OBSERVATIONS: PULMONARY ARTERIES: No filling defect is identified within the main or proximal pulmonary artery. The main pulmonary artery is not enlarged. THORACIC AORTA: No aneurysmal dilatation or dissection is present. The great vessels are intact LUNGS: A pleural-based mass is identified within the lateral margin of the left upper lobe, measuring 24 x 17 x 33 mm (anterior to posterior x medial to lateral x cranial to caudal dimension). A satellite solid nodule is also noted measuring 7 x 7 mm Adjacent groundglass opacification suggests an inflammatory component, for which follow-up to resolution is recommended, as a malignancy has a similar appearance. The remainder of the lungs are clear MEDIASTINUM: A morphologically suspicious lymph node is identified within the aortopulmonary window measuring 8 mm in short axis dimension. An additional left hilar lymph node is also present measuring 10 mm in short axis dimension. These also may be reactive in origin. BONES OF THE CHEST: No acute fracture. No significant degenerative disease. No lytic or blastic lesions. HEART: The heart is of normal size, without pericardial effusion. IMPRESSION: No pulmonary embolus. No thoracic aortic dissection. Pleural-based mass within the lateral base of the left upper lobe, which may be infectious in origin for which follow-up to resolution is recommended, as a malignancy has a similar appearance. Satellite nodule is also noted, as is adjacent groundglass opacification. Morphologically suspicious aortopulmonary window lymph node and a left hilar lymph node. Fleischner guidelines suggest PET/CT, repeat CT examination in 3 months, versus tissue sampling (if no inflammatory or infectious symptoms are present). Reviewed, dictated and finalized at location A. IMPRESSION: No pulmonary embolus. No thoracic aortic dissection. Pleural-based mass within the lateral base of the left upper lobe, which may be infectious in origin for which follow-up to resolution is recommended, as a ma lignancy has a similar appearance. Satellite nodule is also noted, as is adjacent groundglass opacification. Morphologically suspicious aortopulmonary window lymph node and a left hilar ly mph node. Fleischner guidelines suggest PET/CT, repeat CT examination in 3 months, versus tissue sampling (if no inflammatory or infectious symptoms are present).
--- OUTSIDE RECORDS SUMMARY | 2025-06-08 09:53 | XMS_ITS | Clinical Summary ---
Author Organization [facility] Address [address] [place] [address] Care Team Providers Care Elevator Serviceman Name Role Phone Giuseppe Lima DO Primary Care Provider +1- [phone] Bijal Lott OD Unavailable Allergies No known [...] Comments Blood Pressure 131/74 08/26/2021 8:28 AM MARKETING AREA MANAGER Pulse 71 08/26/2021 8:28 AM MARKETING AREA MANAGER Temperature - - Respiratory Rate - - Oxygen Saturation - - Inhaled Oxygen Concentration - - Weight 67 kg (147 lb 9.6 oz) 08/26/2021 8:28 AM MARKETING AREA MANAGER Height 165.1 cm (5' 5) 08/26/2021 8:28 AM MARKETING AREA MANAGER Body Mass Index 24.56 08/26/2021 8:28 AM MARKETING AREA MANAGER Plan of Treatment Not on file Insurance Hipscan ID Hipscan ID Care Teams Elevator Serviceman Relationship Specialty Start Date End Date Giuseppe Lima DO PCP - General 02/12/17 Bijal Lott OD [address] [place] [address] Referring Physician Optometry 08/26/22
--- OUTSIDE RECORDS SUMMARY | 2025-06-08 09:53 | XMS_ITS | Clinical Summary ---
Author Organization [facility] [employer] Address [address] [place] [address] Care Team Providers Care Jr. Java Developer Name Role Phone Giuseppe Lima DO Primary Care Provider Source Comments [facility] [employer],non-owned Affiliates and Associated Physician Practices is amultiple site organization consisting of ambulatory clinics and hospital sitesin [place], [place], [place] and [place]. This disclosure is being madepursuant to the Care Everywhere program and may not contain all information available regarding this patient. Last updated 18.[facility] [employer] Allergies No known active allergies Medications * [...] age to complete this topic Insurance [facility] SELF PAY NO INSURANCE Member Subscriber Plan / Payer (Ef fective for All Dates) Name:Charmaine Ruggiero Member ID:Not on file Relation to Subscriber:Not on file Name:CHARMAINE RUGGIERO Subscriber ID:Not on file Address: [address] [place] [address] Payer ID:Not on file Group ID:Not on file Type:Self Pay Address: [place], [place] Care Teams Jr. Java Developer Relationship Specialty Start Date End Date Giuseppe Lima DO PCP - General Internal Medicine 01/29/17
== END 2025-06-08 09:39 | disposition home or self-care (01) ==
PROVIDERS: PCP Internal Medicine; Visit Provider Clinical Nurse Specialist
DX: R07.89 Other chest pain (principal); R06.02 Shortness of breath; D69.6 Thrombocytopenia, unspecified; D72.829 Elevated white blood cell count, unspecified; M79.10 Myalgia, unspecified site
CPT/HCPCS: 71260; Q9967

== ENCOUNTER 2025-06-28 13:53 | Outpatient (CLI) | payer BC, SELFPAY ==
--- NOTE | ~2025-06-28 | PE_ITS ---
EXAMINATION: PET skull to mid thigh DATE: 06/29/2025 08:48 INDICATION: Other specified pleural condition. Enlarged lymph nodes. TECHNIQUE: Blood glucose level was 95 mg/dL. 10.192 mCi of 18-fluorodeoxyglucose (18-FDG) was administered i.v. Low dose computed tomography (CT) images were acquired from the base of the brain to the proximal thighs for attenuation correction and anatomic localization. Positron emission tomography (PET) images were acquired in the same distribution beginning 52 minutes after injection. Images including fused PET/CT images were reconstructed in axial, coronal, and sagittal planes. Automated exposure control technique was employed. The dose- length product was 673.90mGy-cm. COMPARISON: CT chest dated 06/08/2025 and of the abdomen and pelvis dated 03/10/2022 FINDINGS: Head/neck: There is symmetric increased activity in the oral cavity, palatine tonsils and ocular muscles without CT correlate, likely physiologic. No pathologically enlarged cervical lymphadenopathy or suspicious foci of increased FDG uptake in the visualized head or neck. Chest: Significant interval decrease in size of a small region of peripheral consolidation at the lateral inferior left upper lobe, previously measuring 2.4 x 1.7 similar, currently measuring 12 x 5 mm with mild FDG activity with maximal SUV of 4.3. The surrounding smaller nodules seen on the prior CT have either resolved or nearly resolved. The chronologic evolution would be most consistent with resolving pneumonia. No other suspicious pulmonary nodules, pulmonary edema or pleural effusion. Heart size is normal. No pericardial effusion. Thoracic aorta is normal in caliber. There is increased FDG activity with maximal SUV of 7.3 associated with the previously noted left hilar lymph node which appears unchanged in size, measuring at the upper limits of normal on the prior CT. There is additional mild increased uptake associated with a few normal-sized left hilar and prevascular/AP window mediastinal lymph nodes which are most likely reactive. No pathologically enlarged thoracic lymph nodes. Abdomen/pelvis/proximal thighs: Physiologic renal accumulation and excretion of FDG activity in the kidneys, bladder and along portions of ureters. 2 mm nonobstructing right renal stone. Mild prostatomegaly measuring 4.1 x 3.5 cm without abnormal FDG activity. Normal degree and heterogenous pattern of increased uptake throughout the liver without radiologic correlate or dominant FDG avid lesion. The gallbladder, pancreas, spleen and bilateral adrenal glands are normal. Mild uptake scattered throughout the bowels without radiologic correlate, also likely physiologic. Normal appendix. No other abnormal foci of increased FDG uptake or pathologically enlarged lymphadenopathy in the abdomen, pelvis or proximal thighs. Musculoskeletal: No suspicious lytic, blastic or abnormally FDG avid bone lesions. IMPRESSION: 1. Interval decrease in size of a region of pleural-based consolidation with mild increased FDG activity as well as of the a few surrounding nodules in the left upper lobe with the temporal evolution consistent with resolving pneumonia. 2. A few mildly FDG avid left hilar and mediastinal lymph nodes which remain within normal limits in size which most likely reactive related to the left upper lobe pneumonia. 3. No other FDG avid lesions suspicious for malignancy/metastatic. 4. 2 mm nonobstructing right renal stone. Reviewed, dictated and finalized at location A. IMPRESSION: 1. Interval decrease in size of a region of pleural-based consolidation with mi ld increased FDG activity as well as of the a few surrounding nodules in the le ft upper lobe with the temporal evolution consistent with resolving pneumonia. 2. A few mildly FDG avid left hilar and mediastinal lymph nodes which remain wi thin normal limits in size which most likely reactive related to the left upper lobe pneumonia. 3. No other FDG avid lesions suspicious for malignancy/metastatic. 4. 2 mm nonobstructing right renal stone.
--- OUTSIDE RECORDS SUMMARY | 2025-06-28 15:41 | XMS_ITS | Clinical Summary ---
Author Organization [facility] Address [address] [place] [address] Care Team Providers Care Audio Visual Aide Name Role Phone Giuseppe Lima DO Primary Care Provider +1- [phone] Bijal Lott OD Unavailable Allergies No known [...] Comments Blood Pressure 131/74 08/26/2021 8:28 AM COMMUNICATIONS EQUIPMENT INSTALLER Pulse 71 08/26/2021 8:28 AM COMMUNICATIONS EQUIPMENT INSTALLER Temperature - - Respiratory Rate - - Oxygen Saturation - - Inhaled Oxygen Concentration - - Weight 67 kg (147 lb 9.6 oz) 08/26/2021 8:28 AM COMMUNICATIONS EQUIPMENT INSTALLER Height 165.1 cm (5' 5) 08/26/2021 8:28 AM COMMUNICATIONS EQUIPMENT INSTALLER Body Mass Index 24.56 08/26/2021 8:28 AM COMMUNICATIONS EQUIPMENT INSTALLER Plan of Treatment Not on file [place] Care Teams Audio Visual Aide Relationship Specialty Start Date End Date Giuseppe Lima DO PCP - General 02/12/17 Bijal Lott OD [address] [place] [address] Referring Physician Optometry 08/26/22
== END 2025-06-28 13:54 | disposition home or self-care (01) ==
PROVIDERS: PCP Internal Medicine; Visit Provider Clinical Nurse Specialist
DX: J94.8 Other specified pleural conditions (principal); R93.89 Abnormal findings on diagnostic imaging of other specified body structures; R59.0 Localized enlarged lymph nodes
CPT/HCPCS: 78815; A9552